=== PATIENT | female | born 1970 | race Caucasian/White ===

== ENCOUNTER 2024-08-06 11:45 | Observation (INO) ==
[2024-08-06 13:36] LABS: Hematocrit 44.6 % (35-45); Hemoglobin 15.2 g/dL (11.5-14.3); Mean Corpuscular Hemoglobin 30.7 pg (27-33); Mean Corpuscular Hgb Conc 34.2 g/dL (31-36); Mean Corpuscular Volume 89.8 fL (80-97); Red Blood Count 4.96 10^6/uL (3.63-4.92); White Blood Count 4.9 10^3/uL (3.8-11.8)
[2024-08-06 13:43] LABS: Calcium 9.2 mg/dL (8.6-10.3); Creatinine, Serum 0.71 mg/dL (0.51-0.95); Potassium 4.1 mmol/L (3.5-5.0); eGFR CKD-EPI 100.3 (>60)
[2024-08-06 14:07] LABS: ABS Basophils 0.1 10^3/uL (0.0-0.1); ABS Lymphocytes 1.5 10^3/uL (1.0-4.8); ABS Monocytes 0.4 10^3/uL (0.0-0.9); ABS Neutrophils 2.9 10^3/uL (1.5-7.6); ABS Nucleated RBC 0.02 10^3/ul; Eosinophil % 0.2 %; Mean Platelet Volume 9.7 fL (7.5-11.2); Nucleated Red Blood Cells % 0.3 %/100WBC (0.0-0.8); Platelet Count 169 10^3/uL (150-450)
[2024-08-06] MEDS: Iohexol 350 (CONTRAST) 500 ML MDV IV ONE (14:34)
[2024-08-07 06:02] LABS: Hematocrit 41.1 % (35-45); Hemoglobin 14.1 g/dL (11.5-14.3); Mean Corpuscular Hemoglobin 30.7 pg (27-33); Mean Corpuscular Hgb Conc 34.4 g/dL (31-36); Mean Corpuscular Volume 89.2 fL (80-97); Red Cell Distribution Width 13.1 % (12-17); White Blood Count 4.1 10^3/uL (3.8-11.8)
[2024-08-07 06:09] LABS: Creatinine, Serum 0.63 mg/dL (0.51-0.95); eGFR CKD-EPI 104.7 (>60)
[2024-08-07 06:23] LABS: TSH Ultra Thyroid Stim Horm 2.1 mcIU/mL (0.34-5.60)
[2024-08-07 07:12] LABS: Large Platelets Present; Mean Platelet Volume 10.3 fL (7.5-11.2); Platelet Count 163 10^3/uL (150-450)
[2024-08-07] MEDS: Sulfur Hexaflouride MICROSPHR 25 MG VIAL IV PRN (14:57)
[2024-08-07] MEDS: Gadoteridol (CONTRAST) 279.3 MG/ML 10 ML IV ONE (17:21)
[2024-08-07 17:30] VITALS: BP 136/83
== END 2024-08-07 18:45 | disposition home or self-care (01) ==
LOC: ED 11:45 → EDHOLD 11:45 → MEDTELE 17:37
PROVIDERS: ADMIT Hospitalist; ATTEND Hospitalist